=== PATIENT | female | born 2000 | race Hispanic/Latino ===

== ENCOUNTER 2022-06-15 20:06 | Emergency (ER) | payer OTHER ==
[~2022-06-15] VITALS: Ht 165.1 cm; Wt 84.4 kg
[2022-06-15] MEDS ORDERED: IBUPROFEN 400 MG TAB PO ONE (20:45)
[2022-06-15] MEDS ORDERED: IBUPROFEN 400 MG TAB ONE (20:54)
[2022-06-15] MEDS ORDERED: IBUPROFEN800 MG PO (21:12)
[2022-06-15 21:22] VITALS: BP 116/78
== END 2022-06-15 21:22 | disposition home or self-care (01) ==
LOC: FSED 20:17
DX: M94.0 Chondrocostal junction syndrome [Tietze] (principal); F17.210 Nicotine dependence, cigarettes, uncomplicated
CPT/HCPCS: 71045; 93005; 99283

== ENCOUNTER 2022-07-27 19:13 | Emergency (ER) | payer OTHER ==
[~2022-07-27] VITALS: Ht 165.1 cm; Wt 82.6 kg
[~2022-07-27 19:13] MED LIST: IBUPROFEN800 MG PO
[2022-07-27] MEDS ORDERED: ONDANSETRON HCL 4 MG ORAL DISINTEGRATING TAB PO ONE (19:45)
[2022-07-27] MEDS ORDERED: ONDANSETRON HCL 4 MG ORAL DISINTEGRATING TAB ONE (20:08)
[2022-07-27] MEDS ORDERED: CEFTRIAXONE 1 GM VIAL IM ONE (20:30)
[2022-07-27] MEDS ORDERED: ONDANSETRON ODT4 MG PO (20:50)
[2022-07-27] MEDS ORDERED: CEFUROXIME500 MG PO (20:51)
[2022-07-27] MEDS ORDERED: LIDOCAINE HCL 1% LOCAL INJ 20 ML VIAL ONE (20:56)
[2022-07-27] MEDS ORDERED: CEFTRIAXONE 1 GM VIAL ONE (20:56)
[2022-07-27 21:11] VITALS: BP 117/67
== END 2022-07-27 21:11 | disposition home or self-care (01) ==
LOC: FSED 19:21
DX: R50.9 Fever, unspecified (principal); B34.9 Viral infection, unspecified; N39.0 Urinary tract infection, site not specified; R51.9 Headache, unspecified
CPT/HCPCS: 81003; 81025; 83518; 87400; 96372; 99283; J0696; J2001; Q0162

== ENCOUNTER 2023-01-27 19:59 | Emergency (ER) | payer OTHER ==
[~2023-01-27] VITALS: Ht 165.1 cm; Wt 84.4 kg
[~2023-01-27 19:59] MED LIST changes: +CEFUROXIME500 MG PO; +ONDANSETRON ODT4 MG PO
[2023-01-27] MEDS ORDERED: ONDANSETRON HCL INJ 2MG/ML 2ML 2 MG/ML VIAL IV STA (21:44)
[2023-01-27] MEDS ORDERED: KETOROLAC TROMETHAMINE 30 MG/ML VIAL IV SCH (21:45)
[2023-01-27] MEDS ORDERED: SODIUM CHLORIDE 0.9% 1000ML 1,000 ML IV SCH (21:45)
[2023-01-27] MEDS ORDERED: IOPAMIDOL 370 MG/ML 100 ML INFUS..BTL INJ ONE (22:09)
[2023-01-27] MEDS ORDERED: KETOROLAC TROMETHAMINE 30 MG/ML VIAL ONE (22:10)
[2023-01-27] MEDS ORDERED: SODIUM CHLORIDE 0.9% 1000ML 1,000 ML ONE (22:11)
[2023-01-27] MEDS ORDERED: ONDANSETRON HCL INJ 2MG/ML 2ML 2 MG/ML VIAL ONE (22:11)
[2023-01-27] MEDS ORDERED: PEPCID20 MG PO (23:41)
[2023-01-27] MEDS ORDERED: ONDANSETRON ODT4 MG PO (23:41)
[2023-01-27] MEDS ORDERED: DICYCLOMINE HCL20 MG PO (23:41)
[2023-01-27 23:49] VITALS: BP 122/76
== END 2023-01-27 23:49 | disposition home or self-care (01) ==
LOC: FSED 20:11
DX: R10.31 Right lower quadrant pain (principal)
CPT/HCPCS: 74177; 80048; 80076; 81003; 81025; 85025; 96374; 99284; J1885; J2405; J7030; Q9967

== ENCOUNTER 2023-04-27 17:25 | Emergency (ER) | payer OTHER ==
[~2023-04-27] VITALS: Ht 167.6 cm; Wt 83.7 kg
[~2023-04-27 17:25] MED LIST changes: +DICYCLOMINE HCL20 MG PO; +PEPCID20 MG PO
[2023-04-27 17:49] VITALS: O2SAT 100
[2023-04-27] MEDS ORDERED: KETOROLAC TROMETHAMINE 30 MG/ML VIAL IV STA (18:13)
[2023-04-27] MEDS ORDERED: ONDANSETRON HCL INJ 2MG/ML 2ML 2 MG/ML VIAL IV STA (18:13)
[2023-04-27] MEDS ORDERED: IOPAMIDOL 370 MG/ML 100 ML INFUS..BTL INJ ONE (18:14)
[2023-04-27] MEDS ORDERED: SODIUM CHLORIDE 0.9% 1000ML 1,000 ML IV SCH (18:15)
[2023-04-27] MEDS ORDERED: ONDANSETRON ODT4 MG PO (19:41)
[2023-04-27] MEDS ORDERED: DICYCLOMINE HCL20 MG PO (19:41)
[2023-04-27] MEDS ORDERED: NAPROSYN500 MG PO (19:55)
== END 2023-04-27 20:10 | disposition home or self-care (01) ==
LOC: FSED 17:31
DX: R10.11 Right upper quadrant pain (principal); R10.31 Right lower quadrant pain; R11.2 Nausea with vomiting, unspecified; K59.00 Constipation, unspecified; M54.50 Low back pain, unspecified; M43.06 Spondylolysis, lumbar region
CPT/HCPCS: 74177; 80048; 80076; 81003; 81025; 85025; 96374; 96375; 99284; J1885; J2405; J7030; Q9967